=== PATIENT | male | born 1955 | race Caucasian/White ===

== ENCOUNTER 2019-09-13 06:53 | Day surgery (SDC) | payer OTHER ==
[2019-09-10 15:38] VITALS: BMI 30.1
[2019-09-13] MEDS ORDERED: LACTATED RINGERS 1,000 ML IV ONE (07:21)
[2019-09-13] MEDS ORDERED: LIDOCAINE 1% (10MG/ML) FOR IV START INTRADERMA ONE (07:22)
[2019-09-13 07:25] VITALS: RESP 16; TEMP 97.5
[2019-09-13] MEDS ORDERED: PROPOFOL 10 MG/ML 20 ML VIAL IV ONE (07:38)
[2019-09-13] MEDS ORDERED: MIDAZOLAM 2 MG/2 ML VIAL ONE (07:38)
[2019-09-13] MEDS ORDERED: LIDOCAINE 1% INJ 10MG/ML (20 ML MDV) ONE (07:38)
--- NOTE | 2019-09-13 08:14 | P.PCN ---
Date of Procedure: 09/13/19 Description of Procedure: BRIEF HISTORY: Patient is a 63-year-old male with a known history of back pain who presents for outpatient colonoscopy for evaluation of rectal bleed. The patient reports symptoms of bright red blood per rectum occurring this past summer with recurrence more recently. Hemoglobin was normal in the outpatient setting. Last colonoscopy in 02/2016 significant for colonic diverticulosis. PROCEDURE PERFORMED: Colonoscopy with polypectomy. PREOPERATIVE DIAGNOSIS: Rectal bleed, last colonoscopy in . ESTIMATED BLOOD LOSS: Minimal. IV sedation per Anesthesia. PROCEDURE: After informed consent was obtained, the patient, was brought into the endoscopy unit. IV sedation was administered by Anesthesia under continuous monitoring. Digital rectal examination was normal. Initially the Olympus CF-190 flexible video colonoscope was then inserted in the rectum, gradually advanced into the cecum without any difficulty. Careful examination was performed as the scope was gradually being withdrawn. Ileocecal valve and the appendiceal orifice were vi sualized and appeared normal. Prep was excellent. Mucosa of the cecum, ascending colon, transverse colon, descending colon, sigmoid colon, and rectum appeared normal. 3 diminutive polyps removed from the transverse colon two measuring 1 mm in size and one measuring 2 mm in size with cold forcep polypectomy. 2 diminutive polyps removed from the descending colon measuring 1 and 2 mm in size with cold forcep polypectomy. Mild sigmoid diverticulosis noted. Retroflexion was performed in the rectum and no lesions were seen. The patient tolerated the procedure well. IMPRESSION: 5 diminutive polyps measuring 1-2 mm in size removed from the transverse colon and descending colon with cold forcep polypectomy. Mild sigmoid diverticulosis. RECOMMENDATIONS: Findings of this examination were discussed with the patient. Okay to resume diet. Okay to resume medication. Await pathology from polypectomy. Would recommend repeat colonoscopy in 5 years given polyps removed. If patient has further bleeding would recommend local perirectal care with sitz baths, tox wipes, and topical steroid therapy.
[2019-09-13] MEDS ORDERED: LACTATED RINGERS 1,000 ML IV SCH (08:17)
[2019-09-13 08:54] VITALS: BP 123/85; PULSE 78
== END 2019-09-13 08:56 | disposition home or self-care (01) ==
LOC: ORWHC2ENDO 06:53
PROVIDERS: ATTEND Internal Medicine
DX: D12.3 Benign neoplasm of transverse colon (principal); D12.4 Benign neoplasm of descending colon; K57.31 Diverticulosis of large intestine without perforation or abscess with bleeding; Z88.8 Allergy status to other drugs, medicaments and biological substances; Z79.899 Other long term (current) drug therapy; Z98.890 Other specified postprocedural states
CPT/HCPCS: 88305; 45380; J2250; J2001; J2704

== ENCOUNTER → 2024-08-16 | Outpatient (CLI) | payer MEDICARE ==
--- NOTE | 2024-08-17 05:53 | US ---
EXAMINATION TYPE: US scrotum with doppler. DATE OF EXAM: 08/16/2024 COMPARISON: NONE CLINICAL INDICATION: Male, 68 years old with history of N50.819 TESTICULAR PAIN; Left side discomfort , no swelling TECHNIQUE: Grayscale, color Doppler and spectral Doppler imaging of the scrotum. FINDINGS: EXAM MEASUREMENTS: TESTICLES: Right Testicle: 4.2 x 3.3 x 2.8 cm Left Testicle: 4.2 x 3.1 x 2.3 cm EPIDIDYMIS HEAD: Right Epididymis: 0.9 x 1.0 x 0.8 cm, head cyst- 0.4 x 0.4 x 0.3 cm Left Epididymis: 0.8 x 0.7 x 0.5 cm Doppler performed to assess for testicular vascularity; good bilateral color flow and spectral wavefo petra are seen. Presence of hydroceles: No Presence of varicoceles: Right IMPRESSION: Satisfactory Symmetric blood flow to both testicles is identified. Source of patient's sy mptoms not seen. [facility], , 08/17/2024 5:50 AM
== END | disposition home or self-care (01) ==
LOC: RADUSWWP 15:29
PROVIDERS: ATTEND Family Medicine
DX: N50.819 Testicular pain, unspecified (principal)
CPT/HCPCS: 76870; 93975